=== PATIENT | female | born 2005 | race Two or more races ===

== ENCOUNTER 2024-05-14 08:28 | Emergency (ER) | payer OTHER ==
[~2024-05-14] VITALS: Ht 149.9 cm; Wt 68.2 kg
[2024-05-14 08:32] VITALS: TEMP 98.8
[2024-05-14] MEDS: ACETAMINOPHEN 325 MG TABLET PO ONE (09:36)
[2024-05-14] MEDS: OXYMETAZOLINE HCL 0.05% 15 ML NASAL SPRAY NASAL ONE (09:36)
[2024-05-14] MEDS: DEXAMETHASONE 4 MG TABLET PO ONE (09:36)
[2024-05-14] MEDS: CETIRIZINE HCL 10 MG TABLET PO ONE (09:37)
[2024-05-14] MEDS: OFLOXACIN 0.3% 5 ML OTIC SOLUTION AD ONE (09:37)
[2024-05-14] MEDS ORDERED: HYDR-4072 PO (09:44)
[2024-05-14 10:10] VITALS: BP 118/70; PULSE 80; RESP 16; O2SAT 99
== END 2024-05-14 10:12 | disposition home or self-care (01) ==
LOC: EMS 08:30
DX: H60.91 Unspecified otitis externa, right ear (principal); B34.9 Viral infection, unspecified
CPT/HCPCS: 99284; J8540; Z7502; Z7610